=== PATIENT | male | born 1990 | race Two or more races ===

== ENCOUNTER 2018-07-24 22:23 | Emergency (ER) | payer OTHER, SELFPAY ==
[~2018-07-24] VITALS: Ht 175.3 cm; Wt 120.0 kg
[2018-07-24] MEDS ORDERED: MORPHINE SULFATE 4 MG/ML CPJ (NOT FOR IM USE) IV ONE ×2 (22:26→23:00)
[2018-07-24] MEDS ORDERED: ONDANSETRON HCL 4MG/2ML INJ ONE (22:27)
[2018-07-24] MEDS ORDERED: MORPHINE SULFATE 4 MG/ML CPJ (NOT FOR IM USE) IV STA (22:29)
[2018-07-24] MEDS ORDERED: ONDANSETRON HCL 4MG/2ML INJ IV STA (22:29)
[2018-07-24] MEDS ORDERED: SODIUM CHLORIDE 0.9% 1,000 ML IV ONE (22:29)
[2018-07-24] MEDS ORDERED: TETANUS, DIPHTHERIA, PERTUSSIS VAC/PF 0.5ML (>7YR OLD) IM ONE (22:30)
[2018-07-24] MEDS ORDERED: CEFAZOLIN 1000MG PREMIX 50 ML IV ONE (22:30)
[2018-07-24 22:56] VITALS: BP 150/105
[2018-07-24 23:08] LABS: BASOPHILS % 0.8 % (0.0-2.0); EOSINOPHILS % 0.8 % (0.0-5.0); HEMATOCRIT. 41.3 % (42.0-52.0); LYMPHOCYTES % 55.2 % (20.0-50.0); MEAN CORPUSCULAR HEMOGLOBIN 31.1 pg (28.0-32.0); MEAN CORPUSCULAR VOLUME 92.1 fL (80.0-94.0); MEAN PLATELET VOLUME 9.5 fl (7.4-10.4); MONOCYTES % 6.5 % (2.0-8.0); NEUTROPHILS % 36.7 % (40.0-76.0); PLATELET 200 x1000/uL (130-400); RED BLOOD CELL COUNT 4.48 mill/uL (4.7-6.1); RED CELL DISTRIBUTION WIDTH 14.1 % (11.6-14.6)
[2018-07-24 23:13] LABS: CHLORIDE 108 mEq/L (98-107)
[2018-07-24 23:16] LABS: INR 1.1; PARTIAL THROMBOPLASTIN TIME 21.8 sec (23.4-31.0); PROTHROMBIN TIME 11.4 sec (9.6-11.0)
== END 2018-07-24 23:10 | disposition short-term general hospital (02) ==
LOC: ER 22:23
DX: S36.113A Laceration of liver, unspecified degree, initial encounter (principal); S31.600A Unspecified open wound of abdominal wall, right upper quadrant with penetration into peritoneal cavity, initial encounter; S91.302A Unspecified open wound, left foot, initial encounter; X93.XXXA Assault by handgun discharge, initial encounter; Y93.89 Activity, other specified; Y92.488 Other paved roadways as the place of occurrence of the external cause
CPT/HCPCS: 36415; 71045; 71260; 74177; 80053; 83690; 85025; 85610; 85730; 86850; 86900; 86901; 96365; 96375; 99285; J0690; J2270; J2405; J7030